=== PATIENT | male | born 1985 | race Caucasian/White ===

== ENCOUNTER 2023-08-21 12:20 | Emergency (ER) | payer OTHER, SELFPAY ==
[2023-08-21 13:42] VITALS: BP 161/117; PULSE 103; RESP 16; TEMP 36.3; O2SAT 100
--- NOTE | 2023-08-21 14:34 | ED.UPPEXIN ---
HPI - Extremity Injury (Upper) General Chief Complaint: Extremity Injury, Upper Stated Complaint: Right Wrist Pain Source: patient Mode of arrival: ambulatory Limitations: no limitations History of Present Illness HPI narrative: 38 y/o male presented for c/o right wrist pain, redness and swelling, stating I have gout. Reports decreased range of motion and pain with movement or touching the site. Onset yesterday. Pain 7/10. Denies numbness, tingling, weakness of the hand or the arm. endorses history of gout. Took 1 tablet of ibuprofen today. He was taking colchicine for prevention but has not taken this in over year. He denies having a PCP. Related Data Allergies Allergy/AdvReac Type Severity Reaction Status Date / Time No Known Allergies Allergy Verified 08/08/13 14:04 Review of Systems Review of Systems: CONSTITUTIONAL: Denies body aches, fever, chills EYES: Denies visual changes ENT: Denies rhinorrhea, congestion CARDIOVASCULAR: Denies chest pain, palpitations, or edema. RESPIRATORY: Denies cough or dyspnea. GASTROINTESTINAL: Denies abdominal pain, nausea, vomiting, or diarrhea. SKIN: Denies rash, itching, or wounds. MUSCULOSKELETAL: reports right wrist pain Denies back pain, or myalgia. NEUROLOGIC: Denies headache, numbness, tingling, or weakness. All systems reviewed & are unremarkable except as noted in HPI and below PMFSH Past Medical History Medical History (Updated 08/21/23 @ 15:01 by Hellen Mcleod, KENYA) Hypertension Comments At time of signature, I have reviewed and agree with nursing past medical, surgical, social and family history unless otherwise noted. Please see nursing chart for further information. There is no relevant family history pertinent to the presenting complaint Exam Narrative: GENERAL: Well-appearing CHEST: Speaks in full sentences. No respiratory distress. HEART: Regular rate and rhythm. Normal and equal peripheral pulses. EXTREMITIES: Right wrist with mild erythema and moderate swelling extending into the mid hand. Tender with palpation. Decreased range of motion at wrist endorses pain with movement. Hand has normal strength and sensation, No ecchymosis, No open wounds, or obvious deformity; alignment normal, pulse palpable and equal bilaterally, skin warm, dry, pink. Capillary refill less than 3 seconds. SKIN: Warm, dry, no rash. NEURO: Alert and oriented x3. PSYCH: Normal mood and affect Course Course Emergency Course: Patient is aware of diagnosis, understands and agrees to treatment plan. Anticipatory guidance given. Patient agrees to follow-up as directed and is aware of reasons to seek care at the emergency department. Portions of this record may have been created with voice recognition software Level of Care: Express Care Visit Vital Signs Vital signs: Vital Signs Temperature 97.4 F L 08/21/23 13:42 Pulse Rate 103 H 08/21/23 13:42 Respiratory Rate 16 08/21/23 13:42 Blood Pressure 161/117 H 08/21/23 13:42 Pulse Oximetry 100 08/21/23 13:42 Oxygen Delivery Room Air 08/21/23 13:42 Temperature 97.4 F L 08/21/23 13:42 Pulse Rate 103 H 08/21/23 13:42 Respiratory Rate 16 08/21/23 13:42 Blood Pressure 161/117 H 08/21/23 13:42 Pulse Oximetry 100 08/21/23 13:42 Oxygen Delivery Room Air 08/21/23 13:42 Reviewed MDM - Extremity Injury (Upper) MDM Narrative Medical decision making narrative: Discussed physical exam findings c/w gout and reviewed Rx's. Also discussed elevated BP and associated risks, he states it will be high it is always high. Admits no pcp, not taking any med for htn or gout. Advised supportive measures and signs/symptoms to go to the ER. Pt is appropriate for outpt treatment and f/u. He states he resides in [place], and will return tomorrow. Differential Diagnosis Differential diagnosis: Likely sprain and strain of wrist, fracture of wrist and other (gout) Discharge Plan Discharge Clinica
[2023-08-21 14:52] VITALS: BP 167/118
== END 2023-08-21 15:05 | disposition home or self-care (01) ==
PROVIDERS: Emergency Provider Nurse Practitioner Family
DX: M10.9 Gout, unspecified (principal); I10 Essential (primary) hypertension
CPT/HCPCS: 99213; G0463

== ENCOUNTER 2025-01-20 18:18 | Emergency (ER) | payer BC, SELFPAY ==
--- NOTE | ~2025-01-20 | XR_ITS ---
EXAM: XR knee LT min 4V DATE: 01/20/2025 23:01 HISTORY: pain, hx gout . COMPARISON: None available. FINDINGS: Normal mineralization. No fracture or dislocation. No lytic or blastic lesion. Loss of the normal valgus alignment. Mild tricompartmental osteoarthritis. Status post ACL repair. No erosion or periosteal change. Large volume joint fluid. IMPRESSION: No acute osseous finding the left knee. Large joint effusion. Reviewed, dictated and finalized at location K.
--- OUTSIDE RECORDS SUMMARY | 2025-01-20 18:21 | XMS_ITS | Clinical Summary ---
Author Organization [facility] Address [address] [place] [phone] Care Team Providers Care Comsec Manager Name Role Phone Kacey Gross MD Primary Care Provider Riley Rashid MD Unavailable [phone] Allergies No known active allergies Medications allopurinoL (ZYLOPRIM) 300 mg tablet Take 1 tablet (300 mg total) by mouth daily 5 Active HYDROcodone-natasha taminophen (NORCO) 5-325 mg per tablet 1 to 2 tablets every 4 to 6 hours as needed for pain. 8 Active ibuprofen (ADVIL,MOTRIN) 600 mg tablet Take 1 tablet (600 mg total) by mouth every 6 (six) hours as needed 8 Active methylPREDNISol one (MEDROL DOSEPACK) 4 mg Dosepack FOLLOW PACKAGE DIRECTIONS 5 Active traMADoL (ULTRAM) 50 mg tablet 1 to 2 tablets by mouth every 4 to 6 hours as needed for pain. 8 Active Active Problems Problem Noted Date Diagnosed Date Acute pain of right knee 11/18/2024 Acute injury of right knee cartilage 11/18/2024 Encounters Date Type Department Care Team Description 01/08/2025 Telephone [facility] [address] [place] [phone] Desiree Boogie 01/08/2025 Refill [facility] [address] [place] [phone] Pritesh Salvador MD Gout, unspecified cause, unspecified chronicity, unspecified site (Primary Dx) 01/08/2025 Orders Only [facility] [address] [place] [id number] Pritesh Salvador MD Idiopathic gout, unspecified chronicity, unspecified site 11/22/2024 10:45 AM CDT Office Visit [facility] Medicine at [address] [place] [phone] Vishal Marcano MD Acute pain of right knee (Primary Dx); S/P ACL reconstruction 11/19/2024 3:00 PM CDT - 11/19/2024 11:59 PM CDT Hospital Encounter [facility] [address] [place] [id number] Pritesh Salvador MD Chronic pain of right knee Discharge Disposition: Discharge to home or self care 11/18/2024 4:40 PM CDT - 11/18/2024 11:59 PM CDT Hospital Encounter [facility] [address] [place] [phone] Pritesh Salvador MD Acute pain of right knee; Acute injury of right knee cartilage, initial encounter Discharge Disposition: Discharge to home or self care 11/18/2024 2:49 PM CDT - 11/18/2024 11:59 PM CDT Hospital Encounter [facility] [address] [place] [phone] Pritesh Salvador MD Chronic pain of right knee (Primary Dx); Chronic pain syndrome; Acute pain of right knee; Acute injury of right knee cartilage, initial encounter Discharge Disposition: Discharge to home or self care from Last 3 Months Surgical History Surgery Date Site/Laterality Comments ANTERIOR CRUCIATE LIGAMENT REPAIR Bilater al Medical History Medical History Date Comments Hypertension Gout Social History Tobacco Use Types Packs/Day Years Used Date Smoking Tobacco: Never Smokeless Tobacco: Never Tobacco Cessation:Counseling Given: Not Answered AUDIT-C Answer Date Recorded Q1: How often do you have a drink containing alc ohol? Monthly or less 11/18/2024 Q2: How many drinks containi ng alcohol do you have on a typical day when you are drinking? 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 Gender Identity Not on file Sexual Orientation Not on file Obstetrics History Last Filed Vital Signs Vital Sign Reading Time Taken Comments Blood Pressure 191/120 11/18/2024 2:59 PM CDT Pulse 83 11/18/2024 2:59 PM CDT Temperature - - Respiratory Rate 15 11/18/2024 2:59 PM CDT Oxygen Saturation 99% 11/18/2024 2:59 PM CDT Inhaled Oxygen Concentration - - Weight 99.8 kg (220 lb) 11/22/2024 10:38 AM CDT Height 182.9 cm (6' 0.01) 11/22/2024 10:38 AM C DT Body Mass Index 29.83 11/22/2024 10:38 AM CDT Plan of Treatment Health Maintenance Due Date Last Done Comments Depression Screening 1987 Hepatitis C Screening 1987 DTaP/Tdap/Td Vaccine (1 - Tdap) 1998 Varicella Vaccines (1 of 2 - 13+ 2-dose series) 2000 Hepatitis B Screening 2005 Regular Well Visit/Exam 18-64 2005 Influenza Vaccine (Season Ended) 2025 HPV Vaccines Aged Out No longer eligi ble based on patient's age to complete this topic Pneumococcal vaccine <65 Aged Out No longer eligible based on patient's age to complete this topic Procedures Procedure Name Priority Date/Time Associated Diagnosis Comments MRI KNEE RIGHT WO CONTRAST Schedule Routine, Read Routine (OP Routine) 11/19/2024 4:03 PM CDT Chronic pain of right knee XR KNEE RIGHT 4 OR MORE VIEWS Schedule Routine, Read Routine (OP Routine) 11/18/2024 4:51 PM CDT Acute pain of right knee Acute injury of right knee cartilage, initial encounter from Last 3 Months Results * MRI Knee Right WO Contrast (11/19/2024 4:03 PM CDT) Anatomical Region Laterality Modality Lower Extremities Right Magnetic Reson ance 11/19/2024 4:47 PM CDT Impressions 11/19/2024 4:48 PM CDT 1. Edema within the anterior horn of the lateral meniscus with edema and effacement of the adjacent meniscocapsular ligaments suggestive of meniscocapsular ligament injury. No discrete or displaced labral tear. 2. Changes of anterior cruciate ligament reconstruction with cystic expansion of the tibial tunnel but without graft tear or arthrofibrosis. 3. Mild to moderate patellofemoral and mild lateral compartment chondrosis with moderate joint effusion and synovitis. 4. Insertional tendinopathy of the popliteus tendon without tear. Dictated by: Juan Ramon Tijerina M.D. The radiology attending physician has personally reviewed this study, and had reviewed and/or edited this written report and agrees with it. Electronically signed by: John Caro M.D. Narrative 11/19/2024 4:48 PM CDT EXAMINATION: 1. MRI KNEE RIGHT WO CONTRAST HISTORY: Right knee pain after martial arts training. History of prior anterior cruciate ligament reconstruction. TECHNIQUE: MR examination of the right knee was performed with an extremity coil. No intravenous or intra-articular contrast was administered for this examination. Sagittal fast spin-echo images, coronal short TR/TE and fast spin-echo images, and transverse fast spin-echo images were obtained. FINDINGS: Comparison is made to right knee radiographs 11/18/2024. In the medial compartment, the meniscus is intact. There is no focal chondrosis. No subchondral edema. In the lateral compartment, there is edema involving the anterior horn of the lateral meniscus and edema and effacement of the anterior horn meniscocapsular ligaments. There is no discrete meniscal tear or displaced flap. Mild superficial thickness chondrosis in the central weightbearing tibial plateau. No subchondral edema. In the patellofemoral compartment, mild superficial thickness chondrosis throughout the patella. Deep partial thickness chondrosis in the trochlear groove with. No subchondral edema. Changes of anterior cruciate ligament reconstruction. The graft is intact. There is cystic expansion of the tibial tunnel measuring up to 14 mm transverse and 18 mm AP. There is a more focal 10 mm cyst or ganglion within the tibial tunnel on series 14 image 17.. No arthrofibrosis. The medial and lateral collateral ligaments are intact. The extensor mechanism is normal. There is insertional tendinopathy of the popliteus tendon without tear.. Moderate knee joint effusion with synovitis.. No loose bodies are identified. The bone marrow signal is normal. Procedure Note John Caro MD - 11/19/2024 EXAMINATION: 1. MRI KNEE RIGHT WO CONTRAST HISTORY: Right knee pain after martial arts training. History of prior anterior cruciate ligament reconstruction. TECHNIQUE: MR examination of the right knee was performed with an extremity coil. No intravenous or intra-articular contrast was administered for this examination. Sagittal fast spin-echo images, coronal short TR/TE and fast spin-echo images, and transverse fast spin-echo images were obtained. FINDINGS: Comparison is made to right knee radiographs 11/18/2024. In the medial compartment, the meniscus is intact. There is no focal chondrosis. No subchondral edema. In the lateral compartment, there is edema involving the anterior horn of the lateral meniscus and edema and effacement of the anterior horn meniscocapsular ligaments. There is no discrete meniscal tear or displaced flap. Mild superficial thickness chondrosis in the central weightbearing tibial plateau. No subchondral edema. In the patellofemoral compartment, mild superficial thickness chondrosis throughout the patella. Deep partial thickness chondrosis in the trochlear groove with. No subchondral edema. Changes of anterior cruciate ligament reconstruction. The graft is intact. There is cystic expansion of the tibial tunnel measuring up to 14 mm transverse and 18 mm AP. There is a more focal 10 mm cyst or ganglion within the tibial tunnel on series 14 image 17.. No arthrofibrosis. The medial and lateral collateral ligaments are intact. The extensor mechanism is normal. There is insertional tendinopathy of the popliteus tendon without tear.. Moderate knee joint effusion with synovitis.. No loose bodies are identified. The bone marrow signal is normal. IMPRESSION: 1. Edema within the anterior horn of the lateral meniscus with edema and effacement of the adjacent meniscocapsular ligaments suggestive of meniscocapsular ligament injury. No discrete or displaced labral tear. 2. Changes of anterior cruciate ligament reconstruction with cystic expansion of the tibial tunnel but without graft tear or arthrofibrosis. 3. Mild to moderate patellofemoral and mild lateral compartment chondrosis with moderate joint effusion and synovitis. 4. Insertional tendinopathy of the popliteus tendon without tear. Dictated by: Juan Ramon Tijerina M.D. The radiology attending physician has personally reviewed this study, and had reviewed and/or edited this written report and agrees with it. Electronically signed by: John Caro M.D. Pritesh Salvador MD IMG MRI PROCEDURES Fi nal Result * X-ray knee right 4+ views (11/18/2024 4:51 PM CDT) Anatomical Region Laterality Modality Lower Extremities, Knee Right Computed Radiography 11/18/2024 4:57 PM CDT Impressions 11/18/2024 4:57 PM CDT No fracture or dislocation. Electronically signed by: Johnna Sen M.D. Narrative 11/18/2024 4:57 PM CDT EXAMINATION: XR KNEE RIGHT 4 OR MORE VIEWS HISTORY: The patient is a 39-year-old male who presents with pain in the right knee. TECHNIQUE: 4 views. FINDINGS: No fracture or dislocation is seen. Metallic devices are seen in the distal femur and proximal tibia from ACL repair. The tibiofemoral and the patellofemoral joints are normal. Procedure Note Johnna Sen MD - 11/18/2024 EXAMINATION: XR KNEE RIGHT 4 OR MORE VIEWS HISTORY: The patient is a 39-year-old male who presents with pain in the right knee. TECHNIQUE: 4 views. FINDINGS: No fracture or dislocation is seen. Metallic devices are seen in the distal femur and proximal tibia from ACL repair. The tibiofemoral and the patellofemoral joints are normal. IMPRESSION: No fracture or dislocation. Electronically signed by: Johnna Sen M.D. Pritesh Salvador MD IMG XR PROCEDURES Fin al Result from Last 3 Months Insurance [facility] Trot [place] Trot [place] Care Teams Comsec Manager Relationship Specialty Start Date End Date Kacey Gross MD [address] [place] [address] PCP - General Family Medicine 11/18/24 Riely Rashid MD [address] [place] [address] Consulting Physician Rheumatology 01/08/25
--- OUTSIDE RECORDS SUMMARY | 2025-01-20 18:21 | XMS_ITS | Referral Summary ---
Author Organization [facility] Address [address] [place] [phone] Care Team Providers Care Artifacts Conservator Name Role Phone Kacey Gross MD Primary Care Provider Riley Rashid MD Unavailable [phone] Encounters Date Type Department Care Team Description 01/08/[address] [phone] Desiree Boogie 01/08/2025 Refill [facility] [address] [place] [phone] Pritesh Salvador MD Gout, unspecified cause, unspecified chronicity, unspecified site (Primary Dx) 01/08/2025 Orders Only [facility] [address] [place] [phone] Pritesh Salvador MD Idiopathic gout, unspecified chronicity, unspecified site 11/22/2024 10:45 AM CDT Office Visit [facility] Medicine at [address] [phone] Vishal Marcano MD Acute pain of right knee (Primary Dx); S/P ACL reconstruction 11/19/2024 3:00 PM CDT - 11/19/2024 11:59 PM CDT Hospital Encounter [facility] [address] [place] [phone] Pritesh Salvador MD Chronic pain of right knee Discharge Disposition: Discharge to home or self care 11/18/2024 4:40 PM CDT - 11/18/2024 11:59 PM CDT Hospital Encounter [facility] [address] [place] [address] Pritesh Salvador MD Acute pain of right knee; Acute injury of right knee cartilage, initial encounter Discharge Disposition: Discharge to home or self care 11/18/2024 2:49 PM CDT - 11/18/2024 11:59 PM CDT Hospital Encounter [facility] [address] [place] [address] Pritesh Salvador MD Chronic pain of right knee (Primary Dx); Chronic pain syndrome; Acute pain of right knee; Acute injury of right knee cartilage, initial encounter Discharge Disposition: Discharge to home or self care from Last 3 Months Allergies No known active allergies Medications allopurinoL [...] Acute injury of right knee cartilage 11/18/2024 Social History Tobacco Use Types Packs/Day Years [...] on file Legal Sex Male 9:45 PM ADJ[employer] ENGLISH IN[employer] Gender Identity Not on file Sexual Orientation Not on file Last Filed Vital Signs Vital Sign Reading [...] 11/22/2024 10:38 AM CDT Plan of Treatment Not on file Procedures Procedure Name Priority Date/Time Associated Diagnosis [...] al Result from Last [address] [address] [employer] Care Teams Artifacts Conservator Relationship Specialty Start Date End Date Kacey Gross MD [address] [place] [address] PCP - General Family Medicine 11/18/24 Riley Rashid MD [facility] [place] [address] Consulting Physician Rheumatology 01/08/25
--- OUTSIDE RECORDS SUMMARY | 2025-01-20 18:22 | XMS_ITS | Data Portability ---
Author Organization [facility] Antonio castroclementeangelicajuvenalst. [facility] Address [address] [place] [address] Care Team Providers Care Manager Drug Safety Name Role Phone VALDEMAR DAVIS Primary Care Provider Assessment No assessment recorded. Plan of Treatment Reminders Order Date Submit Date Provider Last Modified By Organization Details Last Modified Time Details Appointments None recorded. Lab uric acid, serum or plasma 2021 [facility] [address] [facility] [address] [place] [address], [address], 10:55:34 CMP, serum or plasma [address], [address] [place] [address], [address], 10:55:34 uric acid, serum or plasma 2020 021 [facility], [address] [place] [address], [address], 1 07:42:40 CMP, serum or plasma 2020 021 [facility], [address] [place] [address], [address], 07:42:39 Referral None recorded. Procedures None recorded. Surgeries None recorded. Imaging None recorded. Medication Orders probenecid 500 mg-colchici ne 0.5 mg tablet 2021 022 [facility], [address] [place], [address], 14:06:50 amlodipine 5 mg tablet 2021 022 [facility], [address] [place], [address], 07:25:21 irbesartan 300 mg tablet [address] [facility], [address], [address], 13:40:27 amlodipine 5 mg tablet [address] [facility], [address], [address], 13:40:21 irbesartan 300 mg tablet [address] [facility], [address], [address], 13:40:27 amlodipine 5 mg tablet [address] [facility], [address], [address], 13:40:21 probenecid 500 mg-colchici ne 0.5 mg tablet 2020 021 [facility], [address], [address], 09:13:55 colchicine 0.6 mg tablet [address] [facility], [address], [address], 13:40:24 allopurinol 300 mg tablet 2020 021 [facility], [address], [address], 13:59:32 probenecid 500 mg-colchici ne 0.5 mg tablet 2020 021 МАРИНА [facility], [address], [address], 09:27:55 allopurinol 300 mg tablet [address], [address], [address], 13:59:32 irbesartan 300 mg tablet [address] [facility], [address], [address], 13:40:27 amlodipine 5 mg tablet [address] [facility], [address], [address], 13:40:21 irbesartan 300 mg tablet [address] [facility], [address], [address], 13:40:27 Patient TargetsNo targets recorded. Patient Instructions Encounter Date Encounter Id Patient Instructions Last Modified By Organization Details Last Modified Time 12/30/2020 [id number] gout: care instructions Not available 12/30/2020 09:40:57 high blood pressure: care instructions Not available 12/30/2020 09:40:57 learning about high blood pressure Not available 12/30/2020 09:40:57 01/13/2021 [id number] purine-restricte d diet: care instructions mwarthan Not available 01/13/2021 09:27:43 A healthy lifestyle: care instructions mwarthan Not available 01/13/2021 09:27:43 03/24/2021 [id number] A healthy lifestyle: care instructions mwarthan Not available 03/24/2021 10:30:24 03/29/2022 [id number] gout: care instructions Not available 03/29/2022 14:06:37 high blood pressure: care instructions Not available 03/29/2022 14:06:37 learning about high blood pressure Not available 03/29/2022 14:06:37 body mass index: care instructions Not available 03/29/2022 14:06:37 learning about healthy weight Not available 03/29/2022 14:06:36 A healthy lifestyle: care instructions Not available 03/29/2022 14:06:38 Reason for Referral None Reported. Results Created Date Observation Date Name Description Value Unit Range Abnormal Flag Note LastModifiedBy Organization Detail LastModifiedTime 12/31/1912/31/2020 CMP, serum or plasm a glucose 98 mg/dL 65-99 Not Available [facility] ([facility]) [address] [place], [address], 12/31/2020 07:42:39 12/31/1912/31/2020 CMP, serum or plasm a BUN 14 mg/dL 6-20 Not Available [facility] ([facility]) [address] [place], [address], 12/31/2020 07:42:39 12/31/1912/31/2020 CMP, serum or plasm a creatinine 0.88 mg/dL 0.76-1 .27 Not Available [facility] ([facility]) [address] [place], [address], 12/31/2020 07:42:39 12/31/19 21 12/31/2020 CMP, serum or plasm a eGFR if nonafricn AM 113 mL/mi n/1.7 3 >59 Not Available [facility] ([facility]) [address] [place], [address], 12/31/2020 07:42:39 12/31/19 21 12/31/2020 CMP, serum or plasm a eGFR if africn AM 130 mL/mi n/1.7 3 >59 Lab yovanny curre ntly repor ts eGFR in compl iance with the curre nt recom menda tions of the [facility] n[facility] ation . Labco rp will updat e repor ting as new guide lines are publi shed from the NKF-A SN Task force . Not Available [facility] ([facility]) [address] [place], [address], 12/31/2020 07:42:39 12/31/19 21 12/31/2020 CMP, serum or plasm a BUN/creatini ne ratio 16 9-20 Not Available [facility] ([facility]) [address] [place], [address], 12/31/2020 07:42:39 12/31/19 21 12/31/2020 CMP, serum or plasm a sodium 141 mmol/ L 134-14 4 Not Available [facility] ([facility]) [address] [place], [address], 12/31/2020 07:42:39 12/31/19 21 12/31/2020 CMP, serum or plasm a potassium 4.3 mmol/ L 3.5-5. 2 Not Available [facility] ([facility]) [address] [place], [address], 12/31/2020 07:42:39 12/31/19 21 12/31/2020 CMP, serum or plasm a chloride 105 mmol/ L 96-106 Not Available [facility] ([facility]) [address] [facility] [place], [address], 12/31/2020 07:42:39 12/31/1912/31/2020 CMP, serum or plasm a carbon dioxide, total 22 mmol/ L Not Available [facility] ([facility]) [address] [facility] [place], [address], 12/31/2020 07:42:39 12/31/1912/31/2020 CMP, serum or plasm a calcium 9.8 mg/dL 8.7-10 .2 Not Available [facility] ([facility]) [address] [facility] [place], [address], 12/31/2020 07:42:39 12/31/1912/31/2020 CMP, serum or plasm a protein, total 7.4 g/dL 6.0-8. 5 Not Available [facility] ([facility]) [address] [facility] [place], [address], 12/31/2020 07:42:39 12/31/1912/31/2020 CMP, serum or plasm a albumin 4.7 g/dL 4.0-5. 0 Not Available [facility] ([facility]) [address] [facility] [place], [address], 12/31/2020 07:42:39 12/31/1912/31/2020 CMP, serum or plasm a globulin, total 2.7 g/dL 1.5-4. 5 Not Available [facility] ([facility]) [address] [facility] [place], [address], 12/31/2020 07:42:39 12/31/1912/31/2020 CMP, serum or plasm a A/G ratio 1.7 1.2-2. 2 Not Available [facility] ([facility]) [address] [facility] [place], [address], 12/31/2020 07:42:39 12/31/19 21 12/31/2020 CMP, serum or plasm a bilirubin, total 0.9 mg/dL 0.0-1. 2 Not Available [facility] ([facility]) [address] [place], [address], 12/31/2020 07:42:39 12/31/19 21 12/31/2020 CMP, serum or plasm a alkaline phosphatase 56 IU/L 39-117 Not Available [facility]) [address] [place], [address], 12/31/2020 07:42:39 12/31/1912/31/2020 CMP, serum or plasm a AST (SGOT) 32 IU/L 0-40 Not Available [facility] ([facility]) [address] [place], [address], 12/31/2020 07:42:39 12/31/19 21 12/31/2020 CMP, serum or plasm a ALT (SGPT) 38 IU/L 0-44 Not Available [facility] ([facility]) [address] [place], [address], 12/31/2020 07:42:39 12/31/1912/31/2020 uric acid, serum or plasm a uric acid 8.8 mg/dL 3.8-8. 4 above high normal Reagan romero t for gout patie nts: <6.0 Not Available [facility] ([facility]) [address] [place], [address], 12/31/2020 07:42:40 03/08/2003/09/2022 CBC WITH DIFFE RENTI AL/PL ATELE T WBC 6.1 x10e3 /uL 3.4-10 .8 Not Available [facility] ([facility]) [address] [place], [address], 03/09/2022 08:13:24 03/08/20 22 03/09/2022 CBC WITH DIFFE RENTI AL/PL ATELE T RBC 4.87 x10e6 /uL 4.14-5 .80 Not Available [facility] ([facility]) [address] [facility], [place], [address], 03/09/2022 08:13:24 03/08/20 22 03/09/2022 CBC WITH DIFFE RENTI AL/PL ATELE T hemoglobin 15.7 g/dL 13.0-1 7.7 Not Available [facility] ([facility]) [address] [facility], [place], [address], 03/09/2022 08:13:24 03/08/20 22 03/09/2022 CBC WITH DIFFE RENTI AL/PL ATELE T hematocrit 44.6 % 37.5-5 1.0 Not Available [facility] ([facility]) [address] [facility], [place], [address], 03/09/2022 08:13:24 03/08/20 22 03/09/2022 CBC WITH DIFFE RENTI AL/PL ATELE T MCV 92 fL 79-97 Not Available [facility] ([facility]) [address] [place], [address], 03/09/2022 08:13:24 03/08/20 22 03/09/2022 CBC WITH DIFFE RENTI AL/PL ATELE T MCH 32.2 pg 26.6-3 3.0 Not Available [facility] ([facility]) [address] [place], [address], 03/09/2022 08:13:24 03/08/20 22 03/09/2022 CBC WITH DIFFE RENTI AL/PL ATELE T MCHC 35.2 g/dL 31.5-3 5.7 Not Available [facility] ([facility]) [address] [place], [address], 03/09/2022 08:13:24 03/08/20 22 03/09/2022 CBC WITH DIFFE RENTI AL/PL ATELE T RDW 12.2 % 11.6-1 5.4 Not Available [facility] ([facility]) [address] [facility], [place], [address], 03/09/2022 08:13:24 03/08/20 22 03/09/2022 CBC WITH DIFFE RENTI AL/PL ATELE T platelets 216 x10e3 /uL 150-45 0 Not Available [facility] ([facility]) [address] [facility], [place], [address], 03/09/2022 08:13:24 03/08/20 22 03/09/2022 CBC WITH DIFFE RENTI AL/PL ATELE T neutrophils 57 % not estab. Not Available [facility] ([facility]) [address] [facility], [place], [address], 03/09/2022 08:13:24 03/08/20 22 03/09/2022 CBC WITH DIFFE RENTI AL/PL ATELE T lymphs 31 % not estab. Not Available [facility] ([facility]) [address] [facility], [place], [address], 03/09/2022 08:13:24 03/08/20 22 03/09/2022 CBC WITH DIFFE RENTI AL/PL ATELE T monocytes 8 % not estab. Not Available [facility] ([facility]) [address] [facility], [place], [address], 03/09/2022 08:13:24 03/08/20 22 03/09/2022 CBC WITH DIFFE RENTI AL/PL ATELE T eos 3 % not estab. Not Available [facility] ([facility]) [address] [facility], [place], [address], 03/09/2022 08:13:24 03/08/20 22 03/09/2022 CBC WITH DIFFE RENTI AL/PL ATELE T basos 1 % not estab. Not Available [facility] ([facility]) [address] [facility], [place], [address], 03/09/2022 08:13:24 03/08/20 22 03/09/2022 CBC WITH DIFFE RENTI AL/PL ATELE T immature cells TERRAZZO INSTALLER Not Available [facility] ([facility]) [address] [facility], [place], [address], 03/09/2022 08:13:24 03/08/20 22 03/09/2022 CBC WITH DIFFE RENTI AL/PL ATELE T neutrophils (absolute) 3.5 x10e3 /uL 1.4-7. 0 Not Available [facility] ([facility]) [address] [facility], [place], [address], 03/09/2022 08:13:24 03/08/20 22 03/09/2022 CBC WITH DIFFE RENTI AL/PL ATELE T lymphs (absolute) 1.9 x10e3 /uL 0.7-3. 1 Not Available [facility] ([facility]) [address] [place], [address], 03/09/2022 08:13:24 03/08/20 22 03/09/2022 CBC WITH DIFFE RENTI AL/PL ATELE T monocytes(ab solute) 0.5 x10e3 /uL 0.1-0. 9 Not Available [facility] ([facility]) [address] [place], [address], 03/09/2022 08:13:24 03/08/20 22 03/09/2022 CBC WITH DIFFE RENTI AL/PL ATELE T eos (absolute) 0.2 x10e3 /uL 0.0-0. 4 Not Available [facility] ([facility]) [address] [place], [address], 03/09/2022 08:13:24 03/08/20 22 03/09/2022 CBC WITH DIFFE RENTI AL/PL ATELE T baso (absolute) 0.1 x10e3 /uL 0.0-0. 2 Not Available [facility] ([facility]) [address] [facility], [place], [address], 03/09/2022 08:13:24 03/08/20 22 03/09/2022 CBC WITH DIFFE RENTI AL/PL ATELE T immature granulocytes 0 % not estab. Not Available [facility] ([facility]) [address] [facility], [place], [address], 03/09/2022 08:13:24 03/08/20 22 03/09/2022 CBC WITH DIFFE RENTI AL/PL ATELE T immature grans (abs) 0.0 x10e3 /uL 0.0-0. 1 Not Available [facility] ([facility]) [address] [facility], [place], [address], 03/09/2022 08:13:24 03/08/20 22 03/09/2022 CBC WITH DIFFE RENTI AL/PL ATELE T NRBC TERRAZZO INSTALLER Not Available [facility] ([facility]) [address] [facility], [place], [address], 03/09/2022 08:13:24 03/08/20 22 03/09/2022 CBC WITH DIFFE RENTI AL/PL ATELE T hematology comments: TERRAZZO INSTALLER Not Available [facility] ([facility]) [address] [facility], [place], [address], 03/09/2022 08:13:24 03/08/20 22 03/09/2022 COMP. METAB OLIC PANEL (14) glucose 89 mg/dL 65-99 Not Available [facility] ([facility]) [address] [place], [address], 03/09/2022 08:13:25 03/08/20 22 03/09/2022 COMP. METAB OLIC PANEL (14) BUN 12 mg/dL 6-20 Not Available [facility] ([facility]) [address] [place], [address], 03/09/2022 08:13:25 03/08/20 22 03/09/2022 COMP. METAB OLIC PANEL (14) creatinine 1.00 mg/dL 0.76-1 .27 Not Available [facility] ([facility]) [address] [facility] [place], [address], 03/09/2022 08:13:25 03/08/20 22 03/09/2022 COMP. METAB OLIC PANEL (14) eGFR 101 mL/mi n/1.7 3 >59 Not Available [facility] ([facility]) [address] [facility] [place], [address], 03/09/2022 08:13:25 03/08/20 22 03/09/2022 COMP. METAB OLIC PANEL (14) BUN/creatini ne ratio 12 9-20 Not Available [facility] ([facility]) [address] [facility] [place], [address], 03/09/2022 08:13:25 03/08/20 22 03/09/2022 COMP. METAB OLIC PANEL (14) sodium 141 mmol/ L 134-14 4 Not Available [facility] ([facility]) [address] [facility] [place], [address], 03/09/2022 08:13:25 03/08/20 22 03/09/2022 COMP. METAB OLIC PANEL (14) potassium 4.1 mmol/ L 3.5-5. 2 Not Available [facility] ([facility]) [address] [facility] [place], [address], 03/09/2022 08:13:25 03/08/20 22 03/09/2022 COMP. METAB OLIC PANEL (14) chloride 102 mmol/ L 96-106 Not Available [facility] ([facility]) [address] [facility] [place], [address], 03/09/2022 08:13:25 03/08/20 22 03/09/2022 COMP. METAB OLIC PANEL (14) carbon dioxide, total 22 mmol/ L 20- Not Available [facility] ([facility]) [address] [facility], [place], [address], 03/09/2022 08:13:25 03/08/20 22 03/09/2022 COMP. METAB OLIC PANEL (14) calcium 9.7 mg/dL 8.7-10 .2 Not Available [facility] ([facility]) [address] [facility], [place], [address], 03/09/2022 08:13:25 03/08/20 22 03/09/2022 COMP. METAB OLIC PANEL (14) protein, total 7.6 g/dL 6.0-8. 5 Not Available [facility] ([facility]) [address] [facility], [place], [address], 03/09/2022 08:13:25 03/08/20 22 03/09/2022 COMP. METAB OLIC PANEL (14) albumin 4.9 g/dL 4.0-5. 0 Not Available [facility] ([facility]) [address] [facility], [place], [address], 03/09/2022 08:13:25 03/08/20 22 03/09/2022 COMP. METAB OLIC PANEL (14) globulin, total 2.7 g/dL 1.5-4. 5 Not Available [facility] ([facility]) [address] [facility], [place], [address], 03/09/2022 08:13:25 03/08/20 22 03/09/2022 COMP. METAB OLIC PANEL (14) A/G ratio 1.8 1.2-2. 2 Not Available [facility] ([facility]) [address] [facility], [place], [address], 03/09/2022 08:13:25 03/08/20 22 03/09/2022 COMP. METAB OLIC PANEL (14) bilirubin, total 0.9 mg/dL 0.0-1. 2 Not Available [facility] ([facility]) [address] [place], [address], 03/09/2022 08:13:25 03/08/20 22 03/09/2022 COMP. METAB OLIC PANEL (14) alkaline phosphatase 60 IU/L 44-121 Not Available [facility] ([facility]) [address] [place], [address], 03/09/2022 08:13:25 03/08/20 22 03/09/2022 COMP. METAB OLIC PANEL (14) AST (SGOT) 27 IU/L 0-40 Not Available [facility] ([facility]) [address] [place], [address], 03/09/2022 08:13:25 03/08/20 22 03/09/2022 COMP. METAB OLIC PANEL (14) ALT (SGPT) 41 IU/L 0-44 Not Available [facility] ([facility]) [address] [place], [address], 03/09/2022 08:13:25 03/08/20 22 03/09/2022 LIPID PANEL cholesterol, total 178 mg/dL 100-19 9 Not Available [facility] ([facility]) [address] [place], [address], 03/09/2022 08:13:25 03/08/20 22 03/09/2022 LIPID PANEL triglyceride s 203 mg/dL 0-149 above high normal Not Available [facility] ([facility]) [address] [place], [address], 03/09/2022 08:13:25 03/08/20 22 03/09/2022 LIPID PANEL HDL cholesterol 40 mg/dL >39 Not Available [facility] ([facility]) [address] [place], [address], 03/09/2022 08:13:25 03/08/20 22 03/09/2022 LIPID PANEL VLDL cholesterol cecil 35 mg/dL 5-40 Not Available [facility] ([facility]) [address] [place], [address], 03/09/2022 08:13:25 03/08/20 22 03/09/2022 LIPID PANEL LDL chol calc ([facility]) 103 mg/dL 0-99 above high normal Not Available [facility] ([facility]) [address] [facility], [place], [address], 03/09/2022 08:13:25 03/08/20 22 03/09/2022 LIPID PANEL comment: TERRAZZO INSTALLER Not Available [facility] ([facility]) [address] [facility], [place], [address], 03/09/2022 08:13:25 03/08/20 22 03/09/2022 URIC ACID uric acid 6.5 mg/dL 3.8-8. 4 Thera mckinley aquinoge t for gout patie nts: <6.0 Not Available [facility] ([facility]) [address] [place], [address], 03/09/2022 08:13:26 Result Notes None recorded. Problems Name Problem SNOMED Code Status Onset Date Resolution Date Notes Provider Name and Address Organization Details Recorded Time Non-smoker 3287160 Active 2020 CLIFF Ramesh [address] [place] [address],[employer] [address], [place], [address], [facility] 09:35:54 Gout 60819616 Active 2020 CLIFF Ramesh [address] [place] [address],[address], [place], [address], [facility] 09:35:59 Essential hypertension 78066818 Active 2020 CLIFF Ramesh [address] [place] [address],[address], [place], [address], [facility] 09:59:22 Problem Notes None recorded. Procedures Surgical History Date Name Laterality Status Provider Name and Address Organization Details Recorded Time 08/21/19 18 reconstruction of anterior cruciate ligament of knee joint [facility] 11/02/2020 09:51:07 08/21/19 17 reconstruction of anterior cruciate ligament of knee joint [facility]/02/2020 09:50:59 Imaging Results None recorded. Procedure Notes None recorded. Medical Equipment None Reported. Allergies Allergen ID Allergen Name Allergen Category Reaction Reaction Severity Criticality Documentation Date Start Date Code Code System Note Provider Name and Address Organization Details Recorded Time 823917 lisinopri l medicatio n cough Not available Not available 12/08/2020 47068 RxNorm CLIFF Ramesh [address],[facility] [address], [place], [address], [facility] 13:21:59 Medications Name Sig Start Date Stop Date Status Note LastModified by Organization Details LastModified Time prednisone 10 mg tablet TAKE 3 TABLETS BY MOUTH TWICE DAILY FOR 5 DAYS 11/02 completed Not Available Not Available Not Available ibuprofen 800 mg tablet 11/02 completed Not Available Not Available Not Available hydrocodone 5 mg-acetamin ophen 325 mg tablet 11/02 completed Not Available Not Available Not Available prednisone 20 mg tablet TAKE 3 TABLETS BY MOUTH ONCE DAILY FOR 2 DAYS THEN 2 ONCE DAILY FOR 2 DAYS THEN 1 ONCE DAILY FOR 2 DAYS THEN STOP 12/08 completed Not Available Not Available Not Available probenecid 500 mg-colchici ne 0.5 mg tablet Take 1 tablet twice a day by oral route for 90 days. active Not Available Not Available No t Available amlodipine 5 mg tablet Take 1 tablet every day by oral route. 2021 active Not Available Not Available Not Avai lable allopurinol 100 mg tablet TAKE 1 TABLET BY MOUTH ONCE DAILY START FOLLOWING RESOLUTIO N OF GOUT FLARE 01/13 completed Not Available Not Available Not Available oxycodone-a cetaminophe n 5 mg-325 mg tablet TAKE 1 TABLET BY MOUTH EVERY 6 HOURS NEEDED FOR PAIN 11/02 completed Not Available Not Available Not Available indomethaci n 50 mg capsule TAKE 1 CAPSULE BY MOUTH EVERY 8 HOURS NEEDED FOR GOUT 11/02 completed Not Available Not Available Not Available allopurinol 300 mg tablet TAKE 1 TABLET BY MOUTH ONCE DAILY 03/29 completed Not Available Not Available Not Available lisinopril 5 mg tablet 11/02 completed Not Available Not Available Not Available methylpredn isolone 4 mg tablets in a dose pack TAKE DIRECTED ON PACKAGE 11/02 completed Not Available Not Available Not Available colchicine 0.6 mg tablet TAKE 1.2 MG AT THE FIRST SIGN OF FLARE FOLLOWED IN 1 HOUR WITH A SINGLE DOSE OF 0.6 ORALLY FOR DAY 2 AND AFTER TAKE 1 TAB TWICE DAILY UNTIL FLARE RESOLVES 03/29 completed Not Available Not Available Not Available lisinopril 40 mg tablet TAKE 1 TABLET BY MOUTH ONCE DAILY 12/08 completed Not Available Not Available Not Available losartan 100 mg tablet TAKE 1 TABLET BY MOUTH ONCE DAILY 01/13 completed Not Available Not Available Not Available irbesartan 300 mg tablet TAKE 1 TABLET BY MOUTH ONCE DAILY 03/29 completed Not Available Not Available Not Available colchicine 0.6 mg capsule TAKE 2 CAPSULES BY MOUTH A ONE TIME DOSE NEEDED AT ONSET OF GOUT PAIN AND FOLLOW WITH 1 TABLET 1 HOUR LATER 11/02 completed Not Available Not Available Not Available Vitals Date Recorded Body height Body mass index (BMI) Body weight Body temperature Heart rate Oxygen saturation Oxygen saturation in Arterial blood by Pulse oximetry Systolic blood pressure Diastolic blood pressure Provider Name and Address Organization Details Last Updated DateTime 1 185.42 cm 34.2 kg/m2 858289. 42 g 97.9 [degF] 66 /min 98 % 98 % 150 mm[Hg] 100 mm[Hg] [facility] 1 09:23:34 Date Recorded Body height Body mass index (BMI) Body weight Body temperature Heart rate Oxygen saturation Oxygen saturation in Arterial blood by Pulse oximetry Heart rate Systolic blood pressure Diastolic blood pressure Systolic blood pressure Diastolic blood pressure Provider Name and Address Organization Details Last Updated DateTime 1 185.42 cm 34.2 kg/m2 991849. 42 g 97 [degF] 79 /min 98 % 98 % 79 /min 152 mm[Hg] 90 mm[Hg] 143 mm[Hg] 97 mm[Hg] Meena Panchal [facility] 1 09:38:31 Date Recorded Body height Body mass index (BMI) Body weight Heart rate Oxygen saturation Oxygen saturation in Arterial blood by Pulse oximetry Heart rate Body temperature Systolic blood pressure Diastolic blood pressure Systolic blood pressure Diastolic blood pressure Provider Name and Address Organization Details Last Updated DateTime 1 185.42 cm 34.7 kg/m2 793235. 79 g 80 /min 97 % 97 % 80 /min 97.5 [degF] 146 mm[Hg] 104 mm[Hg] 143 mm[Hg] 99 mm[Hg] Meena Panchal [facility] 1 09:16:51 Date Recorded Body height Body mass index (BMI) Body weight Body temperature Heart rate Oxygen saturation Oxygen saturation in Arterial blood by Pulse oximetry Systolic blood pressure Diastolic blood pressure Systolic blood pressure Diastolic blood pressure Provider Name and Address Organization Details Last Updated DateTime 2 185.42 cm 35.1 kg/m2 280990. 57 g 97.2 [degF] 81 /min 98 % 98 % 157 mm[Hg] 109 mm[Hg] 152 mm[Hg] 105 mm[Hg] Shyanneprasanth [facility]ona[facility]ly [facility] 2 14:13:01 Date Recorded Body height Body temperature Heart rate Oxygen saturation Oxygen saturation in Arterial blood by Pulse oximetry Systolic blood pressure Diastolic blood pressure Systolic blood pressure Diastolic blood pressure Provider Name and Address Organization Details Last Updated DateTime 1 185.42 cm 97.2 [degF] 72 /min 97 % 97 % 146 mm[Hg] 84 mm[Hg] 137 mm[Hg] 86 mm[Hg] Shyanne Chantel [facility] 1 09:08:38 Social History Question Answer Notes LastModified by Organizat ion Details LastModified Time Tobacco Smoking Status Never Smoker Meena Maloneypkins [facility] 11/02/2020 09:41:20 Do You Have An Advance Directive? No Information not available 11/02/2020 What Is Your Level Of Caffeine Consumption? Occasional Information not available 11/02/2020 How Much Tobacco Do You Chew? None Information not available 11/02/2020 Does The Patient Have Fever OR Cough OR Shortness Of Breath? No Information not available 11/02/2020 In The Last 14 Days, Has The Patient Had Contact With A COVID-19 Positive Patient Or A COVID-19 Suspect Patient Awaiting Test Results? No Information not available 11/02/2020 If Pulse Oximetry Was Done: Is The Patient's Sp02 Less Than 93% On Room Air? No Information not available 11/02/2020 Does The Patient Have At Least TWO Of These Symptoms? Diarrhea, Chills, Muscle Pain, Repeated Shaking & Chills, Headache, Sore Throat, Or New Loss Of Taste/Smell No Information not available 11/02/2020 What Was The Date Of Your Most Recent Tobacco Screening? 03/29/2022 [id number] Information not available 03/29/2022 Sex: Unknown Functional Status Question Answer Note LastModified by Organizat ion Details LastModified Time Do you or have you ever used any other forms of tobacco or nicotine? No Information not available 04/21/2021 What is your level of alcohol consumption? Occasional Information not available 11/02/2020 Do you or have you ever used smokeless tobacco? Never used smokeless tobacco Information not available 11/02/2020 Urinary incontinence assessment performed? Yes Information not available 11/02/2020 Are you able to care for yourself? Yes Information not available 11/02/2020 Do you or have you ever used e-cigarettes or vape? Never used electronic cigarettes Information not available 11/02/2020 Mental Status None recorded. Family History Relationship Description Onset Age of this Age Resolved Age Notes LastModified by Organization Details LastModified Time Father No current problems or disability Not available 10/19 09:40:42 Mother No current problems or disability Not available 10/19 09:40:42 Medical History Condition Response No changes to past medical history since last recorded N Past Encounters Encounter ID Performer Location Encounter Start Date Encounter Closed Date Diagnosis/Indication Diagnosis SNOMED-CT Code Diagnosis ICD10 Code Diagnosis Note [id number] Jenaro Álvarez MD [facility] [address] [place] [address] 03/05/2018 10:32:57 03/05/2018 10:57:02 Rupture of anterior cruciate ligament 331977905 S83.512A [id number] Jenaro Álvarez MD [facility] [address] [place] [address] 03/08/2018 10:36:13 03/08/2018 11:48:43 Rupture of anterior cruciate ligament 874142682 S83.512A [id number] Valdemar Davis DO [facility] [address] [place] [address] 11/02/2020 09:27:20 11/02/2020 10:05:06 Gouty arthritis of ankle and/or foot 756455652 M10.072 Counseled on low purine diet. Will check uric acid. Will extend prednisone and prescribed colchicine for acute flare. Patient to start allopurino l with flare resolution . We will follow-up in 1 month for monitoring , sooner with concerns. Patient agreeable with plan. Body mass index 30+ - obesity 174956735 Z68.34 Essential hypertension 51657016 I10 elevated blood pressure here in clinic today.Kitty ent has been taking 20 mg of lisinopril over the last 5 days. I did discuss home monitoring , goal blood pressure 130/80. I did discuss DASH diet as well as 5 to 10 pound weight loss and 30 minutes of cardioFlextrip ular activity 5 days/week. Discussed will increase lisinopril to 40 mg once daily, counseled on home monitoring . We will follow-up in 1 month for monitoring , sooner with concerns [id number] Valdemar Davis DO [facility] [address] [place] [address] 12/30/2020 09:13:09 12/30/2020 09:52:50 Essential hypertension 49196738 I10 Change Losartan to Irbesartan 300 mg and recheck BP in two weeks. Increase to 300 mg irbesartan in two weeks if BP not at goal. Consider addition of CCB. Avoid HCTZ due to gout Home BP checks BID, call results in one week. Nurse visit BP check in 2 weeks. Gout 27623170 M10.09 Continue with Allopurino l 100 mg daily for now - until labs returned Discussed calorie intake vs. expenditur e, proper food choice including heart healthy diet and carbohydra te/protein /fat balance. Recommend 150 minutes aerobic exercise weekly, strive for 5-10% weight reduction in the next 3-6 months. Also discussed exercise physiology with maxium and target heart rated during exercise and the use of calorie counting . [id number] Valdemar Davis DO [facility] [address] [employer] [place] [address] 01/13/2021 08:53:49 01/13/2021 09:40:41 Gout 13328307 M10.072 will add probenecid colchicine at this time, continue with allopurino l 300 mg daily. We will recheck uric acid level and patient has been on medication s for approximat andrey 6 weeks. Did director of counseling on low purine diet and patient education informatio n in regards to low purine diet was given to patient today.Prev iously saw Dr. Ocasio, rheumatolo gy, did discuss potentiall y getting back in with them with inadequate response. Body mass index 30+ - obesity 468107996 Z68.34 Essential hypertension 89910089 I10 elevated blood pressure here in clinic today.Cont inue with irbesartan 300 mg daily, add amlodipine 5 mg daily. counseled on home monitoring , goal bp 130/80coun seled on 30 min cardiovasc ular activity 5 days per week, 5-10 pound weight loss and low salt diet. [id number] Valdemar Davis DO [facility] [address] [place] [address] 03/24/2021 08:55:06 03/24/2021 09:21:20 Gouty arthritis of ankle and/or foot 311621928 M10.072 Counseled on low purine diet. Patient to start allopurino l daily with flare resolution .Continue with probenecid colchicine . Patient states he does drink approximat andrey 12 beers twice weekly. I did discuss low purine diet to help alleviate exacerbati ons. Colchicine for acute flare at this time. Patient expresses understand ing. Essential hypertension 15946211 I10 elevated blood pressure here in clinic today.Cont inue with irbesartan 300 mg daily, add amlodipine 5 mg daily. counseled on home monitoring , goal bp 130/80coun seled on 30 min cardiovasc ular activity 5 days per week, 5-10 pound weight loss and low salt diet. Body mass index 30+ - obesity 697531007 Z68.34 [id number] Valdemar Davis, DO [facility] [address] [place] [address] 04/21/2021 08:49:48 04/21/2021 09:08:49 Essential hypertension 63735523 I10 elevated blood pressure here in clinic today.Cont inue with irbesartan 300 mg daily, add amlodipine 5 mg daily. counseled on home monitoring , goal bp 130/80coun seled on 30 min cardiovasc ular activity 5 days per week, 5-10 pound weight loss and low salt diet. [id number] Valdemar Davis, DO [facility] [address] [place] [address] 03/29/2022 13:31:26 03/29/2022 14:17:27 Gout 36076679 M10.072 Needing labs now Discussed calorie intake vs. expenditur e, proper food choice including heart healthy diet and carbohydra te/protein /fat balance. Recommend 150 minutes aerobic exercise weekly, strive for 5-10% weight reduction in the next 3-6 months. Also discussed exercise physiology with maxium and target heart rated during exercise and the use of calorie counting . Body mass index 30+ - obesity 142026558 Z68.35 Essential hypertension 91532248 I10 He is off medication . Start Amlodipine 5 mg daily. Home BP checks BID, call results in one week. Nurse visit BP check in 2 weeks. Consider addition of HCTZ if needed, possibly then hytrin or beta hemant Home BP checks BID, call results in one week. Nurse visit BP check in 2 weeks. Health Concerns Section Related Observation LastModified by Organization Halle herrera LastModified Time None Recorded Concern Status LastModified by Organization Details LastModified Time None Recorded Advance Directives Directive N: Payers Insurance Date Sequence Insurance Name Policy Number Policy Kirby Covered Member ID Kirby Member ID Guarantor Name 06/27/2022 1 [facility] (PPO) [id number] Fernando Yo [id number] Fernando Yo 10/28/2020 1 [facility] (PPO) [id number] Fernando Yo [id number] Fernando Yo Notes Date Note Type Note Provider Name and Address Organization Details Recorded Time 12/30/2020 text/html He is seen for medical check for HTN and gout. He has had gout since age 21 - had been followed by Dr. Ocasio, rheumatology, in the past. He is only taking the Allopurinol regularly, colchicine PRN. He is also seen for HTN follow up. BP - home readings - not checking. No symptoms Diet - fair to less than good Exercise - fair Valdemar Davis DO [facility],[address], [place], [address], [facility] 12/30/2020 12:34:51 01/13/2021 text/html 35-year-old male presents clinic for follow-up. Gout: Patient was last seen in clinic on December 30, 2020, did have elevated uric acid at 8.8 on December 30 and allopurinol was increased from 100 mg to 300 mg daily at that time. Patient reports that he has had an acute gout flare in the last 5 days, has not had any colchicine for use. Reports that he has been taking colchicine as needed for flare but these medications do seem to be helpful for some time before flare returns. Does report that he does drink approximately 12 alcoholic beverages on the weekends, states that he does not eat excessive red meats or shellfish. Hypertension: Patient taking medication as directed, patient was started on irbesartan 300 mg daily on December 30, 2020 due to elevated blood pressure. Is not monitoring blood pressure at home. Denies any chest pain, palpitations, exertional pain or pressure.No other concerns at this time. CLIFF Ramesh [address] [place] [address],[address], [place], [address], [facility] 01/13/2021 09:53:48 03/24/2021 text/html 35-year-old male presents clinic for follow-up. Gout of left ankle: Patient reports that he was previously taking probenecid colchicine daily as well as allopurinol daily and states that he did not have flare for approximately 2 months. States that he did run out of probenecid colchicine for 7 days and has had flare of left-sided heel and ankle pain and gout pain over the last 1 week. Does not currently have any colchicine for flare. States that he did restart his probenecid colchicine but continues to have pain. No fever, chills, open wound. No injury or trauma Hypertension: Patient taking medication as directed. Is not monitoring blood pressure at home, should check blood pressure at [facility] 2 times since last visit and did have elevated readings per patient. Denies any chest pain, palpitations, exertional pain or pressure.No other concerns at this time. CLIFF Ramesh [facility],[address], [place], [address], [facility] 03/24/2021 10:28:19 03/29/2022 text/html He is seen for medical check for HTN and gout. He has had gout since age 21 - had been followed by Dr. Ocasio, rheumatology, in the past. He is only taking the probenecid-colchici ne. He is actually had no symptoms thus far recently. He is also seen for HTN follow up. BP - home readings - not checking. No symptoms. Diet - fair to less than good Exercise - good Tob - none alcohol - some Valdemar Davis DO [address], [place], [address], [facility] 03/30/2022 07:26:18
--- OUTSIDE RECORDS SUMMARY | 2025-01-20 18:22 | XMS_ITS | Clinical Summary ---
Author Organization [facility] Address [address] [place] [address] Phone Care Team Providers Care Mechanical Drafter Name Role Phone Unavailable Primary Care Provider Unavailabl e Allergies No known active allergies Medications traMADol (ULTRAM) 50 mg tablet 1 to 2 tablets by mouth every 4 to 6 hours as needed for pain. 40 Tablet 03/13/2018 Active ibuprofen (MOTRIN) 600 mg tablet Take 1 Tablet (600 mg) by mouth every 6 hours as needed for Pain, Mild. 60 Tablet 3 03/28/2018 Active HYDROcodone-natasha taminophen (NORCO) 5-325 mg tablet 1 to 2 tablets every 4 to 6 hours as needed for pain. 40 Tablet 03/28/2018 Active HYDROcodone-natasha taminophen (NORCO) 5-325 mg tablet 1 to 2 tablets every 4 to 6 hours as needed for pain. 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 Gender Identity Not on file Sexual Orientation Not on file Last Filed Vital Signs Vital Sign Reading Time Taken Comments Blood Pressure - - Pulse - - Temperature - - Respiratory Rate - - Oxygen Saturation - - Inhaled Oxygen Concentration - - Weight 108.9 kg (240 lb) 04/06/2018 11:43 AM CDT Height 182.9 cm (6') 04/06/2018 11:43 AM CDT Body Mass Index 32.55 04/06/2018 11:43 AM CDT Plan of Treatment Health Maintenance Due Date Last Done Comments Pre-Diabetes and Diabetes Screening 1987 DTAP/TDAP/TD VACCINES (1 - Tdap) 2006 HEPATITIS B VACCINES (1 of 3 - 19+ 3-dose series) 2006 INFLUENZA VACCINE (#1) 2024 HPV VACCINES Aged Out No longer eligi ble based on patient's age to complete this topic Insurance BC[employer] BLUE ACCESS/TRUE BLUE PPO
[2025-01-20 18:23] VITALS: BP 164/93; PULSE 102; RESP 17; TEMP 36.4; O2SAT 99
--- NOTE | 2025-01-20 22:16 | PC.NURSE ---
Patient noted walking /standing in waiting room-using his crutches, no distress noted
--- OUTSIDE RECORDS SUMMARY | 2025-01-20 23:05 | XMS_ITS | Clinical Summary ---
Author Organization [facility] Address [address] [place] [address] Care Team Providers Care Grants Assistant Name Role Phone Kacey Gross MD Primary Care Provider [phone] Riley Rashid MD Unavailable [phone] Allergies No known active allergies Medications allopurinoL [...] Type Department Care Team Description 01/08/2025 Telephone [facility] [address] [place] [address] Desiree Boogie 01/08/2025 Refill [facility] [address] [place] [address] Pritesh Salvador MD Gout, unspecified cause, unspecified chronicity, unspecified site (Primary Dx) 01/08/2025 Orders Only [facility] [address] [place] [address] Pritesh Salvador MD Idiopathic gout, unspecified chronicity, unspecified site 11/22/2024 10:45 AM CDT Office Visit [facility] at [address] [place] [address] Vishal Marcano MD Acute pain of right knee (Primary Dx); S/P ACL reconstruction 11/19/2024 3:00 PM CDT - 11/19/2024 11:59 PM CDT Hospital Encounter [facility] [address] [place] [address] Pritesh Salvador MD Chronic pain of right knee Discharge Disposition: Discharge to home or self care 11/18/2024 4:40 PM CDT - 11/18/2024 11:59 PM CDT Hospital Encounter [facility] Diagnostic Imaging [address] [place] [address] Pritesh Salvador MD Acute pain of right knee; Acute injury of right knee cartilage, initial encounter Discharge Disposition: Discharge to home or self care 11/18/2024 2:49 PM CDT - 11/18/2024 11:59 PM CDT Hospital Encounter [facility] [address] [place] [address] Pritesh Salvador MD Chronic pain of right [...] on file 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
--- OUTSIDE RECORDS SUMMARY | 2025-01-20 23:05 | XMS_ITS | Referral Summary ---
Author Organization [facility] Address [address] [place] [address] Care Team Providers Care Itinerant Teacher Assistant Name Role Phone Kacey Gross MD Primary Care Provider [phone] Riley Rashid MD Unavailable [phone] Encounters Date Type Department Care Team Description 01/08/[address] [address] Desiree Boogie 01/08/2025 Refill [facility] [address] [place] [phone] Pritesh Salvador MD Gout, unspecified cause, unspecified chronicity, unspecified site (Primary Dx) 01/08/2025 Orders Only [facility] [address] [place] [phone] Pritesh Salvador MD Idiopathic gout, unspecified chronicity, unspecified site 11/22/2024 10:45 AM CDT Office Visit [facility] Orth[facility] Sports Medicine at [address] [address] Vishal Marcano MD Acute pain of right knee (Primary Dx); S/P ACL reconstruction 11/19/2024 3:00 PM CDT - 11/19/2024 11:59 PM CDT Hospital Encounter [facility] Radiology [address] [place] [address] Pritesh Salvador MD Chronic pain of right knee Discharge Disposition: Discharge to home or self care 11/18/2024 4:40 PM CDT - 11/18/2024 11:59 PM CDT Hospital Encounter [facility] Diagnostic [facility] [address] [place] [address] Pritesh Salvador MD Acute pain of right knee; Acute injury of right knee cartilage, initial encounter Discharge Disposition: Discharge to home or self care 11/18/2024 2:49 PM CDT - 11/18/2024 11:59 PM CDT Hospital Encounter [facility] [address] [place] [address] Pritesh Salvador MD Chronic pain of right [...] on file 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
--- OUTSIDE RECORDS SUMMARY | 2025-01-20 23:06 | XMS_ITS | Clinical Summary ---
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
--- NOTE | 2025-01-20 23:24 | ED.EXTPRO ---
HPI - Extremity Problem General Chief complaint: Extremity Problem,Nontraumatic Stated complaint: Left knee swelling-Hx of Gout Time Seen by Provider: 01/20/25 22:49 Source: patient Mode of arrival: ambulatory Limitations: no limitations History of Present Illness HPI Narrative: Patient is a 39-year-old male who presents the ED with report of left knee pain. Patient reports he began having some discomfort throughout his left knee last Monday. States it has continued to worsen. Became significantly worse on Monday. He notes history of gout since he was 20 years old. States this feels similar. Takes out pain oral daily. Has ran out of colchicine. Had a steroid injection yesterday, but denies significant improvement today. Denies fevers. Has been using crutches to ambulate. Related Data Allergies Allergy/AdvReac Type Severity Reaction Status Date / Time No Known Allergies Allergy Verified 01/20/25 18:19 Review of Systems Review of Systems: All systems reviewed & are unremarkable except as noted in HPI. All systems reviewed & are unremarkable except as noted in HPI and below PMFSH Past Medical History Medical History Well adult exam Hypertension Social History Social History Smoking status: Never smoker Exam Narrative: GENERAL: Well appearing, well-nourished, non-toxic, in no acute distress. HEAD: Normocephalic, atraumatic. RESPIRATORY: Airway patent, respirations nonlabored. CARDIOVASCULAR: Regular rate and rhythm. Pedal pulses intact. MUSCULOSKELETAL: No gross deformities. Mild limited range of motion of left knee due to pain. Range of motion is preserved. Mild swelling noted to left anterior knee with palpable fluid. Mild focal tenderness. Very minimal warmth to knee, no significant erythema. Sensation intact. SKIN: Warm, dry, normal color. NEURO: A&O X3. Speech clear. PSYCHIATRIC: Appropriate mood and affect. Normal interaction. Course Vital Signs Vital signs: Vital Signs Temperature 97.6 F 01/20/25 18:23 Pulse Rate 102 H 01/20/25 18:23 Respiratory Rate 17 01/20/25 18:23 Blood Pressure 164/93 H 01/20/25 18:23 Pulse Oximetry 99 01/20/25 18:23 Oxygen Delivery Room Air 01/20/25 18:23 Temperature 97.6 F 01/20/25 18:23 Pulse Rate 88 01/20/25 23:53 Respiratory Rate 18 01/20/25 23:53 Blood Pressure 145/105 H 01/20/25 23:53 Pulse Oximetry 99 01/20/25 23:53 Oxygen Delivery Room Air 01/20/25 18:23 MDM - Extremity (Nontraumatic) MDM Narrative Medical decision making narrative: X-ray of knee without fracture, does show large joint effusion. Exam most consistent with gout. Patient states this feels most consistent with previous gout episodes. Patient with preserved range of motion, no marked warmth or erythema of knee. Otherwise neurovascularly intact. Low suspicion for septic joint. I did discuss obtaining further blood work/workup to rule out septic joint however, patient declined. Again he states this feels consistent with his previous episodes of gout. Will prescribe steroids for home, short course of pain medication. Patient has an appointment with a porcelain finish sprayer on Monday. Discussed very strict return precautions should symptoms worsen or persist despite medications, patient voiced understanding. Discharged in stable condition. Medical Records Attestation: I reviewed the patient's medical records. Lab Data Attestation: I reviewed the patient's lab results. Labs: Lab Results 01/20/25 Range/Units 19:57 Uric Acid 7.0 (3.5-8.5) mg/dL Imaging Data Attestation: I personally reviewed and interpreted this imaging study as follows: Radiologist's impression: ITS Impressions Knee X-Ray 01/20/25 23:37 IMPRESSION: No acute osseous finding the left knee. Large joint effusion. Discharge Plan Discharge Clinical Impression: Effusion of left knee joint Gout of left knee Qualifiers: Gout etiology: unspecified cause Chronicity: acute Qualified Code(s): M10.9 - Gout, unspecified Patient Disposition: Home Condition: Stable Instructions: Antibiotic Form, Low Purine Diet (ED), Gout (ED) Additional Instructions: Take steroids as prescribed over next several days. Recommend aleve/naproxen and tylenol as needed for pain. Utilize Hydrocodone as needed for more severe pain. Elevate leg and use ice frequently to knee. Continue allopurinol daily as prescribed. Avoid alcohol use. Stay well hydrated. Follow-up with your porcelain finish sprayer and/or primary care doctor for further evaluation. Return to the ED if you experience worsening or severe symptoms, severe swelling/redness/warmth of knee, symptoms not improving with medications, fevers, or any other symptoms of concern. Patient Language: Faroese Prescriptions: New hydrocodone-acetaminophen 5-325 mg tablet 1 tablet PO Q6H PRN (Reason: pain) Qty: 15 0RF prednisone 50 mg tablet 50 mg PO DAILY Qty: 5 0RF naproxen 500 mg tablet 500 mg PO BID PRN (Reason: pain) Qty: 10 0RF No Action colchicine 0.6 mg tablet 0.6 mg PO BID Qty: 60 0RF Follow-up/Referrals: Kacey Gross MD [Primary Care Provider] - Time of Disposition: 23:48
--- NOTE | 2025-01-20 23:33 | PC.NURSE ---
Pt presents to ED c/o 04/30 knee pain due. Pt was seen at urgent care yesterday and given steroids + tramadol. Per pt did not help. HX: gout
[2025-01-20] MEDS: HYDROcodone/acetaminophen (*CRX) 5-325 MG TABLET 1 TAB PO (23:41)
[2025-01-20] MEDS: methylPREDNISolone SOD SUCC 125 MG VIAL IM (23:42)
[2025-01-20 23:53] VITALS: BP 145/105; PULSE 88; RESP 18; O2SAT 99
== END 2025-01-20 23:59 | disposition home or self-care (01) ==
PROVIDERS: Emergency Medicine; Emergency Provider Physician Assistant; PCP Family Medicine
DX: M10.9 Gout, unspecified (principal); M25.462 Effusion, left knee; I10 Essential (primary) hypertension
CPT/HCPCS: 36415; 73564; 84550; 96372; 99283; A9270; J2919